=== PATIENT | male | born 1935 | race Caucasian/White ===

== ENCOUNTER 2020-03-17 12:19 | Observation (INO) ==
[2020-03-17] MEDS ORDERED: HumuLIN R SUBCUT PRN (12:49)
[2020-03-17] MEDS ORDERED: ZOFRAN INJ 4 MG VIAL IVP PRN (12:54)
[2020-03-17] MEDS ORDERED: NS 1000 ML 1,000 ML ONE (14:00)
[2020-03-17] MEDS ORDERED: CIPRO IV 400 MG PREMIX* 0 MG/0 ML IV.SOLN. IV ONE (14:01)
[2020-03-17 14:32] LABS: BASOPHILS % (AUTO) 0.3 % (0.2-1.0); EOSINOPHILS # (AUTO) 0.1 x10^3/uL (0.0-0.2); EOSINOPHILS % (AUTO) 1.7 % (0.9-2.9); HEMATOCRIT 37.9 % (42.0-54.0); HEMOGLOBIN 13.1 g/dL (13.5-18.0); LYMPHOCYTES # (AUTO) 0.7 X10^3/uL (1.3-2.9); LYMPHOCYTES % (AUTO) 12.3 % (21.0-51.0); MEAN CORPUSCULAR HEMOGLOBIN 28.9 pg (27.0-34.0); MEAN CORPUSCULAR HGB CONC 34.7 g/dL (33.0-35.0); MEAN CORPUSCULAR VOLUME 83.2 fL (80.0-100.0); MEAN PLATELET VOLUME 7.5 fL (7.4-11.0); MONOCYTES # (AUTO) 0.4 x10^3/uL (0.3-0.8); MONOCYTES % (AUTO) 7.4 % (0.0-13.0); NEUTROPHILS # (AUTO) 4.2 x10^3/uL (2.2-4.8); NEUTROPHILS % (AUTO) 78.3 % (42.0-75.0); PLATELET COUNT 109 X10^3/uL (150.0-450.0); RED BLOOD COUNT 4.56 X10^6/uL (4.7-6.0); RED CELL DISTRIBUTION WIDTH 13.8 % (11.6-16.5); WHITE BLOOD COUNT 5.3 X10^3/uL (3.6-10.0)
[2020-03-17] MEDS: NS 1000 ML 1,000 ML IV SCH (14:35)
[2020-03-17] MEDS: CIPRO IV 200 MG PREMIX* 200 MG/100 ML BAG IV SCH ×2 (14:35→20:23)
[2020-03-17 14:45] LABS: ALANINE AMINOTRANSFERASE 36 Units/L (12-78); ALBUMIN 3.7 g/dL (3.4-5.0); ALKALINE PHOSPHATASE 116 Units/L (46-116); AMYLASE 39 Units/L (25-115); ASPARTATE AMINO TRANSFERASE 34 Units/L (15-37); BLOOD UREA NITROGEN 14 mg/dL (7-18); CALCIUM 9.4 mg/dL (8.5-10.1); CARBON DIOXIDE 28.7 mmol/L (21-32); CHLORIDE 102 mmol/L (98-107); COR NA(FOR HYPERGLY) 141 mmol/L (136-145); CREATININE 1.31 mg/dL (0.70-1.30); LIPASE 46 Units/L (73-393); SODIUM 140 mmol/L (136-145); TOTAL PROTEIN 7.4 g/dL (6.4-8.2); eGFR NON BLACK RACES 56 (>60)
[2020-03-17 15:29] VITALS: BMI 22.1
[2020-03-17] MEDS: SNACK - Diabetic Appropriate PO SCH (20:20)
[2020-03-17 21:50] LABS: BILIRUBIN,URINE NEGATIVE (NEGATIVE); BLOOD/HEMOGLOBIN,URINE 1+ (NEGATIVE); GLUCOSE, URINE NEGATIVE (NEGATIVE); KETONES,URINE NEGATIVE (NEGATIVE); LEUKOCYTE ESTERASE ,URINE NEGATIVE (NEGATIVE); NITRITES,URINE NEGATIVE (NEGATIVE); PROTEIN,URINE NEGATIVE (NEGATIVE); UROBILINOGEN,URINE 1+ (NORMAL)
[2020-03-17 21:57] LABS: AMORPHOUS SEDIMENT,UR TRACE /HPF (NEGATIVE); APPEARANCE,URINE CLEAR (CLEAR); BACTERIA,URINE NEGATIVE /HPF (NEGATIVE); COLOR,URINE YELLOW (YELLOW); RBC,URINE 0-2 /HPF (0-3); SQUAMOUS EPITHELIAL CELL,UR RARE /HPF (NEGATIVE)
[2020-03-17] MEDS ORDERED: NORMODYNE INJ 20 MG VIAL IV PRN (23:35)
[2020-03-17] MEDS ORDERED: KLONOPIN TAB 0.5 MG PO PRN (23:55)
[2020-03-17] MEDS ORDERED: ZESTRIL TAB 10 MG ONE (23:57)
[2020-03-17] MEDS ORDERED: KLONOPIN TAB 0.5 MG ONE (23:57)
[2020-03-18] MEDS: NS 1000 ML 1,000 ML IV SCH ×3 (03:40→16:31)
--- NOTE | 2020-03-18 05:27 | CT ---
STUDY: CT ABDOMEN AND PELVIS WITH IV CONTRASTCOMPARISON: NoneTECHNIQUE: Axial images were acquired of the abdomen and pelvis with IV contrast. Sagittal and coronal reformatted images were provided. All images were reviewed in a variety of windows and levels.RADIATION REDUCTION TECHNIQUE: Automated exposure control, adjustment of the mA and/or kV according to patient size, or iterative reconstruction techniques were used.HISTORY: PT STATED HE STARTED HAVING NAUSEA, VOMITING, ABD PAIN, AND WEAKNESS SUNDAY NIGHT AND WENT TO [facility]. THEY SAID EVERYTHING LOOKED OK AND SENT ME HOME.FINDINGS:There is a large hiatal hernia. The visualized lower lung zones are clear. Heart size is normal. No evidence of pericardial effusion.Liver, spleen, pancreas, and adrenal glands are unremarkable. Status post cholecystectomy. Prominent cyst is noted which is partially exophytic arising from the right kidney measuring 33 mm in diameter. The cyst appears simple. No evidence of an abdominal aortic aneurysm or dissection. Moderate degree of calcified plaque burden is noted. Numerous diverticula are seen without definitive CT evidence of diverticulitis. No evidence of bowel obstruction. The stomach is grossly unremarkable. The appendix is not clearly visualized on this examination. Loops of small bowel are grossly unremarkable. No gross evidence of retroperitoneal or mesenteric lymphadenopathy.The visualized bones demonstrate degenerative changes. There are no concerning lytic or blastic lesions identified.IMPRESSION:1. Status post cholecystectomy2. There is a large hiatal hernia3. Simple cyst measuring 33 mm is noted in the right kidney4. No evidence of obstructive uropathy or diverticulitis5. The appendix is not visualized. However there are no secondary signs of acute appendicitis6. No evidence of bowel obstruction.Electronically signed by: Tyler Conley (March 18, 2020 05:25:31)
[2020-03-18 06:35] LABS: BASOPHILS % (AUTO) 0.6 % (0.2-1.0); EOSINOPHILS # (AUTO) 0.1 x10^3/uL (0.0-0.2); EOSINOPHILS % (AUTO) 2.7 % (0.9-2.9); HEMOGLOBIN 11.7 g/dL (13.5-18.0); LYMPHOCYTES # (AUTO) 0.7 X10^3/uL (1.3-2.9); LYMPHOCYTES % (AUTO) 19.3 % (21.0-51.0); MEAN CORPUSCULAR HEMOGLOBIN 29.5 pg (27.0-34.0); MEAN CORPUSCULAR HGB CONC 35.4 g/dL (33.0-35.0); MEAN CORPUSCULAR VOLUME 83.2 fL (80.0-100.0); MEAN PLATELET VOLUME 7.2 fL (7.4-11.0); MONOCYTES # (AUTO) 0.4 x10^3/uL (0.3-0.8); NEUTROPHILS # (AUTO) 2.3 x10^3/uL (2.2-4.8); NEUTROPHILS % (AUTO) 66.4 % (42.0-75.0); PLATELET COUNT 93 X10^3/uL (150.0-450.0); RED BLOOD COUNT 3.96 X10^6/uL (4.7-6.0); RED CELL DISTRIBUTION WIDTH 13.6 % (11.6-16.5); WHITE BLOOD COUNT 3.5 X10^3/uL (3.6-10.0)
[2020-03-18 06:47] LABS: ALANINE AMINOTRANSFERASE 27 Units/L (12-78); ALKALINE PHOSPHATASE 90 Units/L (46-116); ASPARTATE AMINO TRANSFERASE 23 Units/L (15-37); BLOOD UREA NITROGEN 12 mg/dL (7-18); CALCIUM 8.1 mg/dL (8.5-10.1); CARBON DIOXIDE 26.6 mmol/L (21-32); CHLORIDE 103 mmol/L (98-107); COR CA(FOR HYPOALB) 8.9 mg/dL (8.5-10.1); CREATININE 1.07 mg/dL (0.70-1.30); SODIUM 137 mmol/L (136-145); TOTAL PROTEIN 6.1 g/dL (6.4-8.2); eGFR NON BLACK RACES > 60 (>60)
[2020-03-18] MEDS: CIPRO IV 200 MG PREMIX* 200 MG/100 ML BAG IV SCH (09:16)
[2020-03-18] MEDS: ZESTRIL TAB 10 MG PO SCH ×2 (09:16)
[2020-03-18] MEDS ORDERED: DIPRIVAN VIAL 20 ML ONE (12:50)
[2020-03-18] MEDS ORDERED: ROBINUL ONE (12:50)
--- NOTE | 2020-03-18 15:26 | DR.H&P ---
H&P - History & Physical for Day of: H&P Date: 03/17/20 - Chief Complaint Chief Complaint: ABDOMINAL PAIN, DEHYDRATION, NAUSEA, VOMITING, WEAKNESS - History of Present Illness History of Present Illness: IS A 84 YEAR OLD PATIENT OF [facility]. HE PRESENTED TO THE ER A DIRECT ADMISSION DUE DEHYDRATION, GASTROENTERITIS, ABDOMINAL PAIN, AND ELEVATED LFTs. HE REPORTS NAUSA, VOMITING, ABDOMINAL PAIN, AND WEAKNESS X 3 DAYS. ABDOMINAL PAIN IS RATED 6/10. HE REPORTS USE OF ZOFRAN AT HOME WITHOUT IMPROVEMENT IN SYMPTOMS. HE WAS SEEN AT [facility] ER ON SUNDAY. LABS REVEALED AN ELEVATED BILIRUBIN AND ALK PHOS. PMH INCLUDES: TIA, CATARACTS, HTN, OSTEOARTHRITIS, SCOLIOSIS, DMII, ANEMIA, PROSTATE CANCER, SKIN CANCER REMOVED, CHOLECYSTECTOMY, HERNIA REPAIR, ESOPHAGEAL STENTING, HEMORRHOIDECTOMY, AND GASTRIC-ESOPHAGEAL RECONSTRUCTION. ON ARRIVAL TO THE HOSPITAL, VITALS WERE: 98.5-90-[id number], PNEUMONIA, GERD, PUD, RENAL DISEASE, 18-95%-170/74. LABS WERE OBTAINED. ABNORMAL LAB VALUES INCLUDE THE FOLLOWING: RBC 4.56, HGB 13.1, HCT 37.9, PLT COUNT 109, PTT 44.3, CREATININE 1.31, GLUCOSE 126, TOTAL BILI 2.00, DIRECT BILI 0.40, LIPASE 46. URINALYSIS REVEALED: WBC 0-2, RBC 0-2, BACTERIA NEGATIVE, LEUKOCYTES NEGATIVE, OCCULT BLOOD 1+. A HEPATITIS PANEL WAS OBTAINED. AN ABDOMEN/PELVIS CT WITH CONTRAST WAS OBTAINED AND REVEALED: Status post cholecystectomy. 2. There is a large hiatal hernia. 3. Simple cyst measuring 33 mm is noted in the right kidney. 4. No evidence of obstructive uropathy or diverticulitis 5. The appendix is not visualized. However there are no secondary signs of acute appendicitis. 6. No evidence of bowel obstruction. HE WAS STARTED ON NS AT 100ML/HR, ZOFRAN 4MG IV Q4H PRN, CIPRO 400MG IV Q12H, KLONOPIN 0.5MG PO HS, LISINOPRIL 10MG PO DAILY, AND HUMULIN R SLIDIDNG SCALE. TODAY, WE WILL CONTINUE WITH IV HYDRATION AND ANTIBIOTICS TODAY. OTHERWISE, WE PLAN TO FOLLOW UP WITH AM LABS AND CONTINUE TO MONITOR. - Past Medical History Past Medical History: Anemia, Arthritis, Diabetes, GERD, Hypertension, PUD Additional Medical History: TIA, PROSTATE CANCER - Past Surgical History Surgical History: Cholecystectomy Additional Surgical History: SKIN CANCER REMOVED, CHOLECYSTECTOMY, HERNIA REPAIR, ESOPHAGEAL STENTING, HEMORRHOIDECTOMY, AND GASTRIC-ESOPHAGEAL R ECONSTRUCTION. - Family History Family Medical History: Cancer, Hypertension - Social History Does any household member use tobacco: No Alcohol Use: None Drug Use: None - Medications Home Medications: codeine Allergy (Unknown, Verified 03/17/20 14:12) promethazine [From Phenergan] Allergy (Unknown, Verified 03/17/20 14:11) CONTINUE taking the following medications atorvastatin 40 mg PO HS 03/17/20 [History] ciprofloxacin HCl 500 mg PO BID 03/17/20 [History] clonazepam 0.5 mg PO HS 03/17/20 [History] clopidogrel 75 mg PO DAILY 03/17/20 [History] gabapentin 100 mg PO HS 03/17/20 [History] glimepiride 4 mg PO DAILY 03/17/20 [History] levothyroxine 75 mcg PO DAILY 03/17/20 [History] lisinopril 10 mg PO DAILY 03/17/20 [History] metronidazole 500 mg PO BID 03/17/20 [History] nitroglycerin 0.4 mg SUBLINGUAL Q5M PRN 03/17/20 [History] ondansetron 8 mg PO Q8H PRN 03/17/20 [History] tamsulosin 0.4 mg PO HS 03/17/20 [History] - Review of Systems Constitutional: Weakness Eyes: No Symptoms Reported ENT: No Symptoms Reported Respiratory: No Symptoms Reported Cardiovascular: No Symptoms Reported Gastrointestinal: See HPI, Nausea, Vomiting, Abdominal Pain Genitourinary: No Symptoms Reported Musculoskeletal: No Symptoms Reported Skin: No Symptoms Reported Neurological: Weakness - Physical Exam Vital Signs: Temperature 97.8 F Pulse Rate [Right Brachial] 88 Pulse Rate [Left Radial] 58 Pulse Rate 52 Respiratory Rate 20 Blood Pressure [Right Arm] 143/65 Blood Pressure 186/79 O2 Sat by Pulse Oximetry 96 Oriented: Normal Eyes: Normal Ear: Normal Nose: Normal Throat: Normal Respiratory: Diminished Throughout Cardiovascular: Normal : Normal Auscultation: Bowel Sounds: Normal Palpation: Normal Tenderness: Diffuse, Mild. negative: Rebound, Guarding, Rigidity Skin: Normal Musculoskeletal: Normal Psychiatric: Normal Mood Description: Calm Affect: Normal Speech Pattern: Clear - Assessment/Plan (1) Dehydration Status: Acute Plan: ADMIT, NS AT 100ML/HR, ZOFRAN 4MG IV Q4H PRN, CIPRO 400MG IV Q12H, KLONOPIN 0.5MG PO HS, LISINOPRIL 10MG PO DAILY, AND HUMULIN R SLIDIDNG SCALE. (2) Gastroenteritis Status: Acute (3) Abdominal pain Qualifiers: Abdominal location: generalized Qualified Code(s): R10.84 - Generalized abdominal pain Status: Acute (4) Elevated LFTs Status: Acute - Allergies Allergies/Adverse Reactions: Allergies Allergy/AdvReac Type Severity Reaction Status Date / Time codeine Allergy Unknown Verified 03/17/20 14:12 promethazine [From Phenergan] Allergy Unknown Verified 03/17/20 14:11
[2020-03-18] MEDS ORDERED: ULTRAM PO PRN (20:09)
[2020-03-18] MEDS ORDERED: NORCO 5/325 MG TAB PO PRN (20:09)
[2020-03-18] MEDS: SNACK - Diabetic Appropriate PO SCH (20:15)
[2020-03-18] MEDS: PROTONIX INJ 40 MG VIAL IVP SCH (20:18)
[2020-03-18] MEDS: CIPRO IV 400 MG PREMIX* 400 MG/200 ML IV.SOLN. IV SCH (20:18)
[2020-03-19] MEDS: NS 1000 ML 1,000 ML IV SCH ×2 (03:09→08:54)
[2020-03-19 05:28] LABS: BASOPHILS % (AUTO) 0.6 % (0.2-1.0); EOSINOPHILS # (AUTO) 0.1 x10^3/uL (0.0-0.2); EOSINOPHILS % (AUTO) 3.2 % (0.9-2.9); HEMATOCRIT 33.8 % (42.0-54.0); HEMOGLOBIN 11.8 g/dL (13.5-18.0); LYMPHOCYTES # (AUTO) 0.7 X10^3/uL (1.3-2.9); LYMPHOCYTES % (AUTO) 22.5 % (21.0-51.0); MEAN CORPUSCULAR HEMOGLOBIN 29.1 pg (27.0-34.0); MEAN CORPUSCULAR HGB CONC 34.9 g/dL (33.0-35.0); MEAN CORPUSCULAR VOLUME 83.3 fL (80.0-100.0); MEAN PLATELET VOLUME 7.1 fL (7.4-11.0); MONOCYTES # (AUTO) 0.3 x10^3/uL (0.3-0.8); MONOCYTES % (AUTO) 9.2 % (0.0-13.0); NEUTROPHILS % (AUTO) 64.5 % (42.0-75.0); PLATELET COUNT 106 X10^3/uL (150.0-450.0); RED BLOOD COUNT 4.06 X10^6/uL (4.7-6.0); RED CELL DISTRIBUTION WIDTH 13.8 % (11.6-16.5); WHITE BLOOD COUNT 3.1 X10^3/uL (3.6-10.0)
[2020-03-19 05:35] LABS: ALANINE AMINOTRANSFERASE 21 Units/L (12-78); ALKALINE PHOSPHATASE 86 Units/L (46-116); ASPARTATE AMINO TRANSFERASE 20 Units/L (15-37); BLOOD UREA NITROGEN 9 mg/dL (7-18); CALCIUM 8.5 mg/dL (8.5-10.1); CARBON DIOXIDE 30.7 mmol/L (21-32); CHLORIDE 104 mmol/L (98-107); COR CA(FOR HYPOALB) 9.3 mg/dL (8.5-10.1); CREATININE 1.23 mg/dL (0.70-1.30); SODIUM 140 mmol/L (136-145); TOTAL PROTEIN 6.1 g/dL (6.4-8.2); eGFR NON BLACK RACES 60 (>60)
[2020-03-19] MEDS: ZESTRIL TAB 10 MG PO SCH (08:53)
[2020-03-19] MEDS: CIPRO IV 400 MG PREMIX* 400 MG/200 ML IV.SOLN. IV SCH (08:53)
[2020-03-19] MEDS: PROTONIX INJ 40 MG VIAL IVP SCH (08:53)
[2020-03-19 12:37] VITALS: BP 191/81
[2020-03-20 20:52] LABS: HEPATITIS B SURFACE ANTIGEN Negative (Negative)
== END 2020-03-19 13:45 | disposition home or self-care (01) ==
LOC: MED/SURG
PROVIDERS: ADMIT Internal Medicine; ATTEND Internal Medicine
DX: D69.6 Thrombocytopenia, unspecified; R10.84 Generalized abdominal pain; K29.90 Gastroduodenitis, unspecified, without bleeding; K44.9 Diaphragmatic hernia without obstruction or gangrene; I44.1 Atrioventricular block, second degree; E86.0 Dehydration; R53.1 Weakness; R17 Unspecified jaundice; R11.2 Nausea with vomiting, unspecified; Z85.46 Personal history of malignant neoplasm of prostate; R00.1 Bradycardia, unspecified; R74.0 Nonspecific elevation of levels of transaminase and lactic acid dehydrogenase [LDH]
CPT/HCPCS: 36415; 74177; 80053; 80074; 81001; 82103; 82150; 82248; 82390; 82525; 82728; 83516; 83540; 83550; 83690; 84443; 85025; 85610; 85730; 86038; 86256; 86308; 93005; 93306; 94760; 96360; 96361; 96372; 96374; 99100; A4222; C9113; G0378; J0744; J1815; J2405; J2704; J3490; J7030